=== PATIENT | female | born 1965 | race Hispanic/Latino ===

== ENCOUNTER 2017-11-20 21:43 | Emergency (ER) | payer BC ==
[2017-11-20 22:10] VITALS: BMI 27.3
[2017-11-20 22:44] VITALS: BP 101/59; PULSE 103; RESP 16; TEMP 98.9; O2SAT 98
--- NOTE | 2017-11-20 22:54 | ED PDOC ---
Arrival/HPI - General Chief Complaint: Headache Time Seen by Provider: 11/20/17 22:32 - History of Present Illness Narrative History of Present Illness (Text): 52 y/o F c PMHx p/w headache x 1 day. Headache is L sided, throbbing, associated with nausea, and spitting up. Fell on ice weeks ago. Denies fever, stiff neck, recent travle, sick contacts, vision changes. States "Is not the worst headache of my life." Past Medical History - Infectious Disease Hx of Infectious Diseases: None - Tetanus Immunization Tetanus Immunization: Unknown - Cardiac Hx Cardiac Disorders: Yes Hx Hypertension: Yes - Pulmonary Hx Respiratory Disorders: Yes Hx Pneumonia: Yes (january 2016) - Neurological Hx Neurological Disorder: Yes HX Cerebrovascular Accident: No Hx Migraine: Yes Hx Seizures: No - HEENT Hx HEENT Disorder: No - Renal Hx Renal Disorder: No - Endocrine/Metabolic Hx Endocrine Disorders: No - Hematological/Oncological Hx Blood Disorders: No Hx Cancer: No - Integumentary Hx Dermatological Disorder: No - Musculoskeletal/Rheumatological Hx Musculoskeletal Disorders: No - Gastrointestinal Hx Gastrointestinal Disorders: No - Genitourinary/Gynecological Hx Genitourinary Disorders: No Hx Sexually Transmitted Diseases: No - Psychiatric Hx Psychophysiologic Disorder: Yes Hx Anxiety: Yes Hx Depression: Yes Hx Substance Use: Yes - Past Surgical History Past Surgical History: No Previous - Surgical History Hx Section: Yes Hx Tonsillectomy: Yes - Anesthesia Hx Anesthesia: Yes Hx Anesthesia Reactions: No Hx Malignant Hyperthermia: No - Suicidal Assessment Feels Threatened In Home Enviroment: No Family/Social History Family/Social History: No Known Family HX Smoking Status: Light Smoker < 10 Cigarettes Daily Hx Alcohol Use: Yes Frequency of alcohol use: Socially Hx Substance Use: Yes Substance used: crack cocaine, KLONOPIN, AMBIEN, HEAROIN Hx Substance Use Treatment: Yes Allergies/Home Meds Allergies/Adverse Reactions: Allergies No Known Allergies Allergy (Verified 10/13/13 02:35) Review of Systems - Physician Review All systems were reviewed & negative as marked: Yes - Review of Systems Constitutional: absent: Fevers Respiratory: absent: SOB Physical Exam - Physical Exam Narrative Physical Exam (Text): Gen: NAD Head: NC/AT. Mild L frontal sinus tenderness. Eyes: PERRL, EOMI, no photophobia. ENT: MMM Neck: No stiffness. CV: Regular rate. Lungs: CTA b/l. Abd: Soft, NT Ext: No swelling or tenderness. Skin: No rash. Neuro: Alert, no focal deficit. CN II to XII intact. Motor 5/5 x 4. Sensation to light touch intact bilaterally. Gait steady. Vital Signs Temp Pulse Resp BP Pulse Ox 11/20/17 22:29 98.9 F 103 H 16 101/59 L 98 Medical Decision Making ED Course and Treatment: Plan: -- Head CT w/o Contrast -- Benadryl -- Reglan -- IV Fluids -- Tylenol -- Reassess and disposition Progress Notes: EXAM: CT Head Without Intravenous Contrast Dictated and Authenticated by: Laura Rosas MD 11/21/2017 1:12 AM IMPRESSION: No evidence of an acute intracranial hemorrhage, midline shift or mass effect is identified. 11/21/17 01:15 On re-evaluation, patient feels better and is in no acute distress. I have discussed the results and plan with the patient, who expresses understanding. Patient in agreement with plan to be discharged home. Patient is stable for discharge. Patient was instructed to follow up with physician or return if symptoms worsen or new concerning symptoms arise. - RAD Interpretation Radiology Orders: 11/20/17 22:57 HEAD W/O CONTRAST [CT] Stat - Medication Orders Current Medication Orders: Discontinued Medications Acetaminophen (Tylenol 325mg Tab) 975 mg PO STAT STA Stop: 11/20/17 22:56 Last Admin: 11/20/17 23:30 Dose: 975 mg MAR Pain/Vitals Document 11/20/17 23:30 RD (Rec: 11/20/17 23:39 RD [facility]) Pain Reassessment Is This A Pain ReAssessment? No Sleep Is patient sleeping during reassessment? No Presence of Pain Presence of Pain Yes Diphenhydramine HCl (Benadryl) 50 mg IVP STAT STA Stop: 11/20/17 22:58 Last Admin: 11/20/17 23:39 Dose: 50 mg IVP Administration Document 11/20/17 23:39 RD (Rec: 11/20/17 23:39 RD [facility]) Charges for Administration # of IVP Administrations 1 Sodium Chloride (Sodium Chloride 0.9%) 1,000 mls @ 999 mls/hr IV .Q1H1M STA Stop: 11/20/17 23:55 Last Admin: 11/20/17 23:39 Dose: 999 mls/hr eMAR Start Stop Document 11/20/17 23:39 RD (Rec: 11/20/17 23:39 RD [facility]) Intravenous Solution Start Date 11/20/17 Start Time 23:39 End Date 11/21/17 End time 00:39 Total Infusion Time 60 Metoclopramide HCl (Reglan) 10 mg IVP STAT STA Stop: 11/20/17 22:56 Last Admin: 11/20/17 23:35 Dose: 10 mg IVP Administration Document 11/20/17 23:35 RD (Rec: 11/20/17 23:39 RD [facility]) Charges for Administration # of IVP Administrations 1 Disposition/Present on Arrival - Present on Arrival Any Indicators Present on Arrival: No History of DVT/PE: No History of Uncontrolled Diabetes: No Urinary Catheter: No History of Decub. Ulcer: No History Surgical Site Infection Following: None - Disposition Have Diagnosis and Disposition been Completed?: Yes Diagnosis: Headache Disposition: HOME/ ROUTINE Disposition Time: :17 Patient Plan: Discharge Condition: STABLE Discharge Instructions (ExitCare): Sinusitis (ED), General Headache (ED) Prescriptions: Amoxicillin/Clavulanate [Augmentin 875 MG-125 MG] 1 tab PO BID #14 tab Referrals: Mundo Farias, [Primary Care Provider] - Follow up with primary Forms: Julep (Romanian)
[2017-11-20] MEDS ORDERED: Sodium Chloride 0.9% 1,000 ML IV STA (22:55)
[2017-11-20] MEDS ORDERED: DiphenhydrAMINE 50 mg/ml Inj IVP STA (22:57)
--- NOTE | 2017-11-21 01:12 | CT ---
EXAM: CT Head Without Intravenous Contrast CLINICAL HISTORY: 52 years old, female; Injury or trauma; Fall; Initial encounter; Concussion / head injury TECHNIQUE: Axial computed tomography images of the head/brain without intravenous contrast. All CT scans at this facility use one or more dose reduction techniques, viz.: automated exposure control; ma/kV adjustment per patient size (including targeted exams where dose is matched to indication; i.e. head); or iterative reconstruction technique. 338 images are submitted. Coronal and sagittal reformatted images were created and reviewed. Axial reformatted images were created and reviewed. COMPARISON: No relevant prior studies available. FINDINGS: Brain: Unremarkable. No hemorrhage. No significant white matter disease. No edema. Ventricles: Unremarkable. No ventriculomegaly. Bones/joints: Unremarkable. No acute fracture. Soft tissues: Unremarkable. Sinuses: Patchy sinus disease. Mastoid air cells: Unremarkable. No mastoid effusion. IMPRESSION: No evidence of an acute intracranial hemorrhage, midline shift or mass effect is identified.
== END 2017-11-21 01:29 | disposition home or self-care (01) ==
LOC: ED 21:43
DX: R51 Headache (principal); I10 Essential (primary) hypertension; F17.210 Nicotine dependence, cigarettes, uncomplicated
CPT/HCPCS: 70450; 96361; 96374; 96375; 99285; J1200; J2765; J7040